=== PATIENT | female | born 1955 | race Caucasian/White ===

== ENCOUNTER 2021-01-12 10:26 | Emergency (ER) | payer OTHER ==
--- NOTE | 2021-01-12 11:08 | EDM.PDOC ---
ED HPI GENERAL MEDICAL PROBLEM - General Chief Complaint: Respiratory Problem Stated Complaint: COVID-SOB Time Seen by Provider: 01/12/21 10:59 Source of Information: Reports: Patient History Limitations: Reports: No Limitations - History of Present Illness INITIAL COMMENTS - FREE TEXT/NARRATIVE: Shantal is a 65-year-old female presenting to the ED for increasing shortness of breath, chest heaviness, and burning sensation in her chest that started last night. The patient has a history of having COVID-19 diagnosed 10 days ago. She is unvaccinated but had been taking precautions. She has been convalescing at home but last night awoke with increasing chest pressure, burning sensation, and increasing shortness of breath. She has a home oximeter which she was measuring her SPO2 at 92% on room air. This morning the oximeter stopped working making her nervous and prompting her to come in for evaluation. Is still having low- grade temperatures and 99 F. - Related Data Allergies Allergy/AdvReac Type Severity Reaction Status Date / Time No Known Allergies Allergy Verified 01/12/21 10:58 Home Meds: Home Meds NK [No Known Home Meds] 01/12/21 [History] Past Medical History HEENT History: Reports: None Cardiovascular History: Reports: None Respiratory History: Reports: None Gastrointestinal History: Reports: Chronic Constipation Genitourinary History: Reports: None CERTIFIED MEDICAL BILLER History: Reports: None Musculoskeletal History: Reports: Fracture Neurological History: Reports: None Psychiatric History: Reports: None Endocrine/Metabolic History: Reports: None Hematologic History: Reports: None Immunologic History: Reports: None Oncologic (Cancer) History: Reports: None Dermatologic History: Reports: None - Infectious Disease History Infectious Disease History: Reports: Chicken Pox, Measles, Novel Coronavirus - Past Surgical History HEENT Surgical History: Reports: None Cardiovascular Surgical History: Reports: None Respiratory Surgical History: Reports: None GI Surgical History: Reports: None Female Surgical History: Reports: None Musculoskeletal Surgical History: Reports: None ED ROS GENERAL - Review of Systems Review Of Systems: See Below Constitutional: Reports: Chills, Malaise, Weakness, Decreased Appetite HEENT: Reports: Rhinitis Respiratory: Reports: Shortness of Breath, Cough Cardiovascular: Reports: Chest Pain (Central chest heaviness with a burning sensation) Endocrine: Reports: Fatigue GI/Abdominal: Reports: Decreased Appetite. Denies: Nausea, Vomiting : Reports: No Symptoms Musculoskeletal: Reports: Muscle Pain Skin: Reports: No Symptoms Neurological: Reports: No Symptoms Psychiatric: Reports: No Symptoms Hematologic/Lymphatic: Reports: No Symptoms ED EXAM, GENERAL - Physical Exam Exam: See Below Exam Limited By: No Limitations General Appearance: Alert, No Apparent Distress Eye Exam: Bilateral Eye: EOMI, PERRL Nose: Nasal Swelling, Nasal Drainage, Clear Rhinorrhea Throat/Mouth: Normal Inspection, Normal Oropharynx Head: Atraumatic, Normocephalic Neck: Normal Inspection, Supple, Non-Tender, Full Range of Motion. No: Lymphadenopathy (R), Lymphadenopathy (L) Respiratory/Chest: No Respiratory Distress, No Accessory Muscle Use, Rhonchi (Scattered bilateral lower lungs) Cardiovascular: Normal Peripheral Pulses, Regular Rate, Rhythm, No Murmur Peripheral Pulses: 2+: Radial (L), Radial (R) GI/Abdominal: Normal Bowel Sounds, Soft, Non-Tender Extremities: Normal Inspection Neurological: Alert, Oriented, Normal Cognition, No Motor/Sensory Deficits Psychiatric: Normal Affect Skin Exam: Warm, Dry, Normal Color, No Rash Course - Vital Signs Last Recorded V/S: Last Vital Signs Temp 36.7 C 01/12/21 10:54 Pulse 71 01/12/21 10:54 Resp 16 01/12/21 10:54 BP 163/94 H 01/12/21 10:54 Pulse Ox 99 01/12/21 10:54 - Orders/Labs/Meds Orders: Active Orders 24 hr Category Date Time Status Chest 1V Frontal [CR] Stat Exams 01/12/21 11:00 Taken Labs: Laboratory Tests 01/12/21 01/12/21 01/12/21 Range/Units 11:05 11:05 11:05 WBC 4.9 (4.5-11.0) K/uL RBC 4.37 (3.30-5.50) M/uL Hgb 12.9 (12.0-15.0) g/dL Hct 36.7 (36.0-48.0) % MCV 84 (80-98) fL MCH 30 (27-31) pg MCHC 35 (32-36) % Plt Count 369 (150-400) K/uL Neut % (Auto) 61.0 (36-66) % Lymph % (Auto) 23.2 L (24-44) % [place] % (Auto) 12.4 H (2-6) % Eos % (Auto) 2.8 (2-4) % Baso % (Auto) 0.6 (0-1) % Sodium 130 L (140-148) mmol/L Potassium 4.3 (3.6-5.2) mmol/L Chloride 93 L (100-108) mmol/L Carbon Dioxide 26 (21-32) mmol/L Anion Gap 15.3 H (5.0-14.0) mmol/L BUN 7 (7-18) mg/dL Creatinine 0.6 (0.6-1.0) mg/dL Est Cr Clr Drug Dosing 85.24 mL/min Estimated GFR (MDRD) > 60 (>60) Glucose 102 (74-106) mg/dL Lactic Acid 0.7 (0.4-2.0) mmol/L Calcium 9.0 (8.5-10.1) mg/dL Ferritin 125 (8-388) ng/ml Total Bilirubin 0.4 (0.2-1.0) mg/dL AST 13 L (15-37) U/L ALT 20 (12-78) U/L Alkaline Phosphatase 73 (46-116) U/L Lactate Dehydrogenase 175 (82-234) U/L C-Reactive Protein 0.84 H (0.0-0.3) mg/dL Total Protein 7.2 (6.4-8.2) g/dL Albumin 3.7 (3.4-5.0) g/dL Globulin 3.5 (2.3-3.5) g/dL Albumin/Globulin Ratio 1.1 L (1.2-2.2) Procalcitonin ng/mL 01/12/21 Range/Units 11:05 WBC (4.5-11.0) K/uL RBC (3.30-5.50) M/uL Hgb (12.0-15.0) g/dL Hct (36.0-48.0) % MCV (80-98) fL MCH (27-31) pg MCHC (32-36) % Plt Count (150-400) K/uL Neut % (Auto) (36-66) % Lymph % (Auto) (24-44) % [place] % (Auto) (2-6) % Eos % (Auto) (2-4) % Baso % (Auto) (0-1) % Sodium (140-148) mmol/L Potassium (3.6-5.2) mmol/L Chloride (100-108) mmol/L Carbon Dioxide (21-32) mmol/L Anion Gap (5.0-14.0) mmol/L BUN (7-18) mg/dL Creatinine (0.6-1.0) mg/dL Est Cr Clr Drug Dosing mL/min Estimated GFR (MDRD) (>60) Glucose (74-106) mg/dL Lactic Acid (0.4-2.0) mmol/L Calcium (8.5-10.1) mg/dL Ferritin (8-388) ng/ml Total Bilirubin (0.2-1.0) mg/dL AST (15-37) U/L ALT (12-78) U/L Alkaline Phosphatase (46-116) U/L Lactate Dehydrogenase (82-234) U/L C-Reactive Protein (0.0-0.3) mg/dL Total Protein (6.4-8.2) g/dL Albumin (3.4-5.0) g/dL Globulin (2.3-3.5) g/dL Albumin/Globulin Ratio (1.2-2.2) Procalcitonin < 0.05 ng/mL - Radiology Interpretation Free Text/Narrative:: I reviewed the portable 1 view chest x-ray showing infiltrates in the right upper lobe consistent with an acute pneumonitis likely secondary to COVID-19. There is no pleural effusions, consolidation, or hilar adenopathy. Normal cardiac silhouette. - Re-Assessments/Exams Free Text/Narrative Re-Assessment/Exam: 01/12/21 12:07 I reviewed the patient's labs showing a normal CBC with a leukocyte count of 4.9, hemoglobin of 12.9, and a platelet count of 369,000. The patient's comprehensive metabolic panel is only significant for a sodium of 130 and a chloride of 93 but otherwise is unremarkable. Her Covid markers show a CRP of 0.84, lactic acid of 0.7, LDH of 175, procalcitonin less than 0.05 and a ferritin of 125. Only the CRP is mildly elevated the remainder of the tests are normal. Given the circumstances, and reassuring the patient that she is still doing fine and does not require hospitalization. She is outside the window for monoclonal antibody therapy to be very effective. She should continue to take Tylenol or ibuprofen for fever, push fluids and I encourage her to rest. At this time she is suitable for discharge home. Departure - Departure Time of Disposition: 12:09 Disposition: Home, Self-Care 01 Clinical Impression: Pneumonia due to COVID-19 virus, COVID-19 - Discharge Information Instructions: 10 Things You Can Do to Manage Your COVID-19 Symptoms at Home - [facility] (09/07/2020), COVID-19: What to Do If You Are Sick- [facility] (05/09/2020) Referrals: PCP,None [Primary Care Provider] - Forms: ED Department Discharge Care Plan Goals: Your work-up today has shown that your inflammatory markers are only mildly elevated but your chest x-ray shows evidence of pneumonitis which is the secondary inflammation due to your body attacking the Covid virus. This is likely the nidus for your symptoms. I would recommend continue to take anti- inflammatories like ibuprofen or naproxen for your symptoms. Continue to push fluids to prevent dehydration and rest. Sepsis Event Note (ED) - Focused Exam Vital Signs: Vital Signs Temp Pulse Resp BP Pulse Ox 01/12/21 10:54 36.7 C 71 16 163/94 H 99 - Problem List & Annotations (1) COVID-19 SNOMED Code(s): 117221701 Code(s): U07.1 - COVID-19 Status: Acute Priority: Medium Current Visit: Yes (2) Pneumonia due to COVID-19 virus SNOMED Code(s): 553980511252281087 Code(s): U07.1 - COVID-19; J12.82 - PNEUMONIA DUE TO CORONAVIRUS DISEASE 2019 Status: Acute Priority: Medium Current Visit: Yes - Problem List Review Problem List Initiated/Reviewed/Updated: Yes - My Orders Last 24 Hours: My Active Orders 01/12/21 11:00 Chest 1V Frontal [CR] Stat - Assessment/Plan Last 24 Hours: My Active Orders 01/12/21 11:00 Chest 1V Frontal [CR] Stat
--- NOTE | 2021-01-14 09:13 | CR ---
CHEST: Portable 01/12/2021 at 11:28 AM CLINICAL HISTORY:Worsening dyspnea COMPARISON:None FINDINGS: There is a patchy infiltrate in the right upper lobe. There is a well-circumscribed nodule in the right lower lung field. No effusion is seen. Heart and pulmonary vascular are normal. IMPRESSION: Right upper lobe pneumonic infiltrate Well-circumscribed subcentimeter nodule in the right lower lung field. Prior films should be helpful. If not available CT chest should be considered following course of treatment.
== END 2021-01-12 12:20 | disposition home or self-care (01) ==
LOC: JP.ED 10:26
DX: U07.1 COVID-19 (principal); J12.82 Pneumonia due to coronavirus disease 2019
CPT/HCPCS: 36415; 71045; 71045-26; 80053; 82728; 83605; 83615; 84145; 85025; 86140; 99285-25

== ENCOUNTER 2021-02-11 21:53 | Emergency (ER) | payer OTHER ==
--- NOTE | 2021-02-11 22:47 | EDM.PDOC ---
ED HPI GENERAL MEDICAL PROBLEM - General Chief Complaint: General Stated Complaint: WEAK, POST COVID 6 WEEKS Time Seen by Provider: 02/11/21 22:30 Source of Information: Reports: Patient History Limitations: Reports: No Limitations - History of Present Illness INITIAL COMMENTS - FREE TEXT/NARRATIVE: 65-year-old female who was diagnosed with Covid over 4 weeks ago, has been havi ng intermittent blood pressure issues, shortness of breath, chest tightness, anxiety, lightheaded feelings and tonight she was at a concert when her upper chest felt fuzzy and that extended into her shoulders. She felt lightheaded and trapped as it was a crowded concert, so got up and left. She did not get diaphoretic, did not develop a cough or headache. When she got onto the pressure she started to feel better but thought she should come to the emergency room to have it checked out. She is now basically feeling back to baseline. Onset: Sudden (Started fairly suddenly about 1-1/2 hours ago) Duration: Minutes: (Lasted 20 to 30 minutes) Location: Reports: Chest Improves with: Reports: Other ([place] seem to help) Worsens with: Denies: Breathing Associated Symptoms: Reports: Malaise, Weakness. Denies: Chest Pain, Fever/Chills, Shortness of Breath Bilateral Chest Pain Score (Numeric/FACES): 3 - Related Data Allergies Allergy/AdvReac Type Severity Reaction Status Date / Time No Known Allergies Allergy Verified 01/12/21 10:58 Home Meds: Home Meds Multivitamin 1 each PO ASDIRECTED 02/11/21 [History] Past Medical History HEENT History: Reports: None Cardiovascular History: Reports: None Respiratory History: Reports: None Gastrointestinal History: Reports: Chronic Constipation Genitourinary History: Reports: None PRIVATE DETECTIVE History: Reports: None Musculoskeletal History: Reports: Fracture Neurological History: Reports: None Psychiatric History: Reports: None Endocrine/Metabolic History: Reports: None Hematologic History: Reports: None Immunologic History: Reports: None Oncologic (Cancer) History: Reports: None Dermatologic History: Reports: None - Infectious Disease History Infectious Disease History: Reports: Chicken Pox, Measles, Novel Coronavirus - Past Surgical History HEENT Surgical History: Reports: None Cardiovascular Surgical History: Reports: None Respiratory Surgical History: Reports: None GI Surgical History: Reports: None Female Surgical History: Reports: None Musculoskeletal Surgical History: Reports: None Social & Family History - Tobacco Use Tobacco Use Status *Q: Never Tobacco User Second Hand Smoke Exposure: No - Caffeine Use Caffeine Use: Reports: Coffee Caffeine Use Comment: 1 cup day ED ROS GENERAL - Review of Systems Review Of Systems: See Below Constitutional: Reports: Malaise. Denies: Fever, Chills HEENT: Reports: No Symptoms Respiratory: Denies: Shortness of Breath, Cough Cardiovascular: Reports: Other ([place] felt a numb sensation in her upper chest and shoulders). Denies: Chest Pain GI/Abdominal: Reports: No Symptoms : Reports: No Symptoms Musculoskeletal: Reports: No Symptoms Skin: Denies: Pallor, Diaphoresis Neurological: Reports: Weakness. Denies: Dizziness, Headache Psychiatric: Reports: Anxiety ED EXAM, GENERAL - Physical Exam Exam: See Below Exam Limited By: No Limitations General Appearance: Alert, No Apparent Distress Eye Exam: Bilateral Eye: Normal Inspection Head: Atraumatic Neck: Supple, Non-Tender Respiratory/Chest: No Respiratory Distress, Lungs Clear Cardiovascular: Regular Rate, Rhythm GI/Abdominal: Soft, Non-Tender Extremities: Normal Inspection Neurological: Alert, Oriented Psychiatric: Anxious Skin Exam: Warm, Dry Course - Vital Signs Last Recorded V/S: Last Vital Signs Temp 97.2 F 02/11/21 22:12 Pulse 78 02/11/21 22:12 Resp 16 02/11/21 22:12 BP 160/80 H 02/11/21 22:12 Pulse Ox 98 02/11/21 22:12 - Re-Assessments/Exams Free Text/Narrative Re-Assessment/Exam: 02/12/21 01:04 This patient's vitals are all normal and her physical exam is normal. She may be developing some long Covid type symptoms but I do not think she has any acute serious complications at this time. She is going to get her primary provider she can discuss her ongoing recurring symptoms with. She can always return to the emergency room if worsening or symptoms are recurring or persistent. Departure - Departure Time of Disposition: 22:48 Disposition: Home, Self-Care 01 Clinical Impression: Long COVID - Discharge Information Instructions: Symptoms of COVID-19 - CDC (04/16/2020) Referrals: PCP,None [Primary Care Provider] - Forms: ED Department Discharge Care Plan Goals: Stay hydrated, activity as tolerated, and consider getting a primary provider in this area to discuss any further testing that you may be interested in if symptoms are persistent. You can also discuss what to expect from long Covid symptoms and ways to follow your progress. I would avoid any extra medicines at this time. Sepsis Event Note (ED) - Evaluation Sepsis Screening Result: No Definite Risk - Focused Exam Vital Signs: Vital Signs Temp Pulse Resp BP Pulse Ox 02/11/21 22:12 97.2 F 78 16 160/80 H 98
== END 2021-02-11 22:54 | disposition home or self-care (01) ==
LOC: JP.ED 21:53
DX: U07.1 COVID-19 (principal)
CPT/HCPCS: 99283